=== PATIENT | female | born 1960 | race African-American/Black ===

== ENCOUNTER 2020-05-19 05:04 | Emergency (ER) | payer OTHER, MEDICAID ==
[~2020-05-19] VITALS: Ht 170.2 cm; Wt 74.0 kg
[~2020-05-19 05:04] MED LIST: B50 GT; FLONAS NS; HYDROCHLOROTHIAZIDE; LEVO500T2 PO; METO10TA3 PO; NIAC1CAP PO; P EP PO; PROT40 PO; TRAM50TA3 PO; [UNRECOGNIZED DRUG - CODE]
[2020-05-19] MEDS ORDERED: SODIUM CHLORIDE 0.9% 1,000 ML IV ONE (07:00)
[2020-05-19 07:20] LABS: BASOPHILS % 0.7 % (0.0-2.0); EOSINOPHILS % 0.9 % (0.0-5.0); HEMATOCRIT. 29.4 % (36.0-48.0); HEMOGLOBIN. 9.8 g/dL (12.0-16.0); LYMPHOCYTES % 20.5 % (20.0-50.0); MEAN CORPUSCULAR HEMOGLOBIN 30.4 pg (28.0-32.0); MEAN CORPUSCULAR VOLUME 91.6 fL (81.0-99.0); MONOCYTES % 4.3 % (2.0-8.0); NEUTROPHILS % 73.6 % (40.0-76.0); PLATELET 112 x1000/uL (130-400); RED BLOOD CELL COUNT 3.21 mill/uL (4.2-5.4); RED CELL DISTRIBUTION WIDTH 14.7 % (11.6-14.6)
[2020-05-19 07:31] LABS: CHLORIDE 113 mEq/L (98-107)
[2020-05-19 07:43] LABS: B-HCG QUANTITATIVE 5 mIU/mL (<3)
[2020-05-19 12:35] LABS: CLARITY URINE CLOUDY (CLEAR); COLOR URINE RED (YELLOW); KETONES URINE NEGATIVE (NEGATIVE); LEUKOCYTE ESTERASE URINE 2+ (NEGATIVE); NITRITE URINE NEGATIVE (NEGATIVE); OCCULT BLOOD URINE 3+ (NEGATIVE); PH URINE 5.5 (4.5-8.0); PROTEIN URINE 2+ (NEGATIVE); SPECIFIC GRAVITY URINE 1.013 (1.005-1.030); UROBILINOGEN URINE 0.2 E.U./dL (0.2-1.0)
[2020-05-19 14:45] VITALS: BP 124/76
== END 2020-05-19 15:34 | disposition home or self-care (01) ==
LOC: ER 05:04
DX: N93.9 Abnormal uterine and vaginal bleeding, unspecified (principal); R42 Dizziness and giddiness; E11.9 Type 2 diabetes mellitus without complications; I10 Essential (primary) hypertension; E78.00 Pure hypercholesterolemia, unspecified; Z79.899 Other long term (current) drug therapy
CPT/HCPCS: 36415; 80053; 81003; 81025; 84702; 85018; 85025; 86850; 86900; 86901; 93005; 96360; 99285; J7030